=== PATIENT | female | born 1965 | race Hispanic/Latino ===

== ENCOUNTER 2018-05-31 09:05 | Day surgery (SDC) | payer OTHER ==
[~2018-05-31 09:05] MED LIST: ANCEF/STERILE WATER 2 GM/20 ML 2 GM/20 ML SYRINGE IV NR; NACL 0.9% 1000 ML 1,000 ML IV SCH
[2018-05-31] MEDS ORDERED: VERSED IV NR (09:49)
[2018-05-31 09:55] LABS: Basophils % (Auto) 0.6 % (0.0-1.8); Eosinophils # (Auto) 0.1 K/mm3 (0.0-0.4); Eosinophils % (Auto) 1.6 % (0.0-4.3); Hematocrit 37.4 % (30.3-42.9); Hemoglobin 12.5 gm/dl (10.1-14.3); Lymphocytes # (Auto) 1.5 K/mm3 (1.2-5.4); Lymphocytes % (Auto) 45.1 % (13.4-35.0); Mean Corpuscular HGB Conc 33 % (30-34); Mean Corpuscular Hemoglobin 32 pg (28-32); Mean Corpuscular Volume 95 fl (79-97); Monocytes # (Auto) 0.2 K/mm3 (0.0-0.8); Monocytes % (Auto) 7.6 % (0.0-7.3); Platelet Count 171 K/mm3 (140-440); Red Blood Count 3.95 M/mm3 (3.65-5.03); Red Cell Distribution Width 12.8 % (13.2-15.2)
[2018-05-31 10:06] LABS: INR 0.96 (0.87-1.13)
[2018-05-31 10:07] LABS: Partial Thromboplastin Time 27.3 Sec. (24.2-36.6)
[2018-05-31 10:28] LABS: BUN/Creatinine Ratio 22; Blood Urea Nitrogen 13 mg/dL (7-17); Calcium 9.2 mg/dL (8.4-10.2); Hemolysis Index 119
[2018-05-31] MEDS ORDERED: VERSED IV ONE (11:44)
[2018-05-31] MEDS ORDERED: XYLOCAINE 2% INFILTRATI ONE (12:07)
[2018-05-31] MEDS ORDERED: HEPARIN/NS 5000 UNIT/500ML(CATH LAB) 1,000 ML IR ONE (12:07)
[2018-05-31] MEDS: VERSED ONE ×2 (12:30→12:40)
[2018-05-31] MEDS: SUBLIMAZE ONE ×2 (12:30→12:40)
[2018-05-31 14:17] VITALS: BP 98/56
--- NOTE | 2018-05-31 15:01 | Short Stay Summary ---
Short Stay Documentation Date of service: 05/31/18 - History Principal diagnosis: retained IVC filter H&P: obtained from office - Allergies and Medications Current Medications: Allergies Sulfa (Sulfonamide Antibiotics) Allergy (Verified 05/31/18 09:33) Unknown Active Medications Cefazolin Sodium (Ancef/Sterile Water 2 Gm/20 Ml) 2 gm in 20 mls @ 80 mls/hr IV PREOP NR; Protocol Stop: 05/31/18 23:59 Sodium Chloride (Nacl 0.9% 1000 Ml) 1,000 mls @ 42 mls/hr IV DIRECT NICOLA Last Admin: 05/31/18 09:58 Dose: 42 mls/hr - Brief post op/procedure progress note Date of procedure: 05/31/18 Pre-op diagnosis: retained IVC filter Post-op diagnosis: same Procedure: Ultrasound and fluoroscopic guided removal of IVC filter Anesthesia: local Surgeon: TELLO LANE Estimated blood loss: minimal Pathology: none Condition: stable - Disposition Condition at discharge: Good Disposition: [id number] TO HOME OR SELFCARE Short Stay Discharge Plan Activity: advance as tolerated Weight Bearing Status: Weight Bear as Tolerated Diet: regular Wound: keep clean and dry, per your surgeon's advice Follow up with: TELLO WILDE MD [Primary Care Provider] - 7 Days
--- NOTE | 2018-05-31 15:08 | Operative Report ---
Operative Report Operative Report: Exam: Ultrasound and fluoroscopic guided removal of IVC filter Clinical indication: Patient with a Bard G2 IVC filter placed in 2007. At some point during patient's implantation, one of the times has broken off and travel to her liver. Concern for additional filter fracture. Date: 05/31/2018 Procedure: Following an expiration of the risks, benefits and alternatives; written informed consent was obtained. The patient was brought to the injury graphic suite and placed in supine position on the examination table. Initial ultrasound evaluation of her right neck demonstrated a patent right internal jugular vein. Initial fluoroscopic evaluation of her abdomen demonstrated a Bard G2 filter. During prior examinations, it was noted that 1 of the limbs of the filters was missing. The patient's right neck was prepped and draped in the usual sterile fashion. 1% lidocaine was used for anesthesia. Under ultrasound guidance, the right internal jugular vein was cannulated with a 7 cm 18-gauge needle. A 0.035 guidewire was advanced centrally under fluoroscopy. The needle was removed and a 5 Khmer sheath placed. The 0.035 guidewire was advanced into the infrarenal IVC past [place] replaced IVC filter. And Omni flush catheter was advanced over the guidewire distal to the filter in the guidewire was removed. Venography was performed which demonstrated appropriate central positioning with no significant tilt. The guidewire was reinserted and the Omni flush catheter removed. The 5 Khmer sheath was removed over the guidewire and the Bard G2 retrievable sheath was advanced over the guidewire under fluoroscopy to just proximal to the previously placed filter. The trocar was removed. The G2 retrievable cone was then advanced through the sheath and deployed to and snare the proximal aspect of the filter. The guidewire was removed. The sheath was then advanced over the filter to collapse to stress and filter removed through the sheath. Following externalization of the filter, the limbs were counted. There are 6 long limbs with flex at the and and a 5 short limbs. Post removal angiography demonstrated no extravasation of contrast to suggest bleeding. Post removal angiography demonstrated no retained fragments as the previously displaced fragment is in the right lobe of the liver. At this point, the sheath was removed and hemostasis achieved at the right neck using manual compression. A sterile dressing was then applied. The patient tolerated the procedure well. There were no immediate post procedure complications. Conscious sedation was performed under the guidance of radiologic nursing. Continuous cardio pulmonal monitoring was utilized. Impression: 1) Ultrasound and fluoroscopic guided removal of a Bard G2 IVC filter placed in 2007 with a missing limb. The missing limb is in the right lobe of the liver. The filter was sealed in a specimen cup and a patient label placed across the specimen lid and cup and initialed by the physician.
== END 2018-05-31 14:30 | disposition home or self-care (01) ==
LOC: CATHLABREC 09:05
PROVIDERS: ATTEND Radiology Diagnostic Radiology
DX: T82.515A Breakdown (mechanical) of umbrella device, initial encounter (principal); M19.90 Unspecified osteoarthritis, unspecified site; F32.9 Major depressive disorder, single episode, unspecified; F41.9 Anxiety disorder, unspecified; Z88.2 Allergy status to sulfonamides; Z90.49 Acquired absence of other specified parts of digestive tract; Z98.890 Other specified postprocedural states; Z90.710 Acquired absence of both cervix and uterus; Y83.8 Other surgical procedures as the cause of abnormal reaction of the patient, or of later complication, without mention of misadventure at the time of the procedure; Y92.89 Other specified places as the place of occurrence of the external cause
CPT/HCPCS: 36415; 37193; 80048; 85025; 85610; 85730; 96374; 99156; 99157; C1769; C1887; J1644; J2250; J3010; J7030; Q9967